=== PATIENT | female | born 1990 | race African-American/Black ===

== ENCOUNTER → 2020-04-14 | Day surgery (SDC) | payer MEDICAID, OTHER ==
[~2020-04-14] VITALS: Ht 172.7 cm; Wt 65.0 kg
[~2020-04-14] MED LIST: ACETAMINOPHEN 325MG TABLET PO PRN; DEXT 5%/0.45% NACL KCL 20MEQ/L 1,000 ML IV SCH; FENTANYL CITRATE/PF 50MCG/ML 2ML VIAL ONE; HYDROMORPHONE HCL/PF 2MG/ML CPJ IV PRN; IBUP-2029 MT; LIDOCAINE HCL/PF 1% 10 MG/ML 5ML VIAL ONE; METH PO; MIDAZOLAM HCL 2 MG/2 ML VIAL ONE; ONDANSETRON HCL 4MG/2ML INJ IV PRN; ONDANSETRON HCL 4MG/2ML INJ ONE; PROPOFOL 200MG/20ML VIAL IV ONE; SUCCINYLCHOLINE CHLORIDE 200MG/10ML IV ONE
[2020-04-14 10:01] LABS: BASOPHILS % 0.7 % (0.0-2.0); EOSINOPHILS % 2.3 % (0.0-5.0); HEMOGLOBIN. 13.6 g/dL (12.0-16.0); LYMPHOCYTES % 34.9 % (20.0-50.0); MEAN CORPUSCULAR HEMOGLOBIN 32.9 pg (28.0-32.0); MEAN CORPUSCULAR VOLUME 94.4 fL (81.0-99.0); MEAN PLATELET VOLUME 10.8 fl (7.4-10.4); MONOCYTES % 7.4 % (2.0-8.0); NEUTROPHILS % 54.7 % (40.0-76.0); PLATELET 105 x1000/uL (130-400); RED BLOOD CELL COUNT 4.13 mill/uL (4.2-5.4)
[2020-04-14 10:08] LABS: CHLORIDE 109 mEq/L (98-107)
[2020-04-14 10:09] LABS: PROTHROMBIN TIME 10.7 sec (9.6-11.0)
[2020-04-14 10:24] LABS: B-HCG QUANTITATIVE 526 mIU/mL (<3)
[2020-04-14 10:29] LABS: CLARITY URINE CLEAR (CLEAR); COLOR URINE YELLOW (YELLOW); KETONES URINE NEGATIVE (NEGATIVE); LEUKOCYTE ESTERASE URINE TRACE (NEGATIVE); NITRITE URINE NEGATIVE (NEGATIVE); OCCULT BLOOD URINE 3+ (NEGATIVE); PROTEIN URINE NEGATIVE (NEGATIVE); SPECIFIC GRAVITY URINE 1.021 (1.005-1.030)
[2020-04-14 13:08] VITALS: BP 124/81
== END | disposition home or self-care (01) ==
LOC: ER 08:49 → EDBEDREQ 12:04 → EDBEDREQTM 12:04 → CANBEDREQ 12:10 → ER 14:28 → OR 14:47 → ENRESERV 21:23 → CANRESERV 21:23 → CANBEDREQ 04-15 20:28
PROVIDERS: ATTEND Specialist
DX: O03.4 Incomplete spontaneous abortion without complication (principal); N93.9 Abnormal uterine and vaginal bleeding, unspecified; Z98.891 History of uterine scar from previous surgery; Z79.899 Other long term (current) drug therapy
CPT/HCPCS: 36415; 59812; 76801; 76817; 80053; 81003; 84702; 85025; 85610; 86850; 86900; 86901; J0330; J2250; J2405; J2704; J3010; J3490; 88305